=== PATIENT | female | born 1975 | race Caucasian/White ===

== ENCOUNTER 2016-07-24 10:11 | Outpatient (CLI) | payer BC, OTHER ==
[~2016-07-24] VITALS: Ht 175.3 cm; Wt 73.2 kg
[~2016-07-24 10:11] MED LIST: METO50TA16 PO
[2016-07-24 10:16] VITALS: BP 181/106; PULSE 76; RESP 18; Ht 175.3 cm; Wt 73.2 kg
--- NOTE | 2016-07-24 11:15 | PN ---
Date/Time of Note Date/Time of Note DATE: 07/24/16 TIME: 11:07 Assessment/Plan Assessment/Plan Assessment/Plan [facility] Outpatient Progress Note Date of Service: 07/24/2016 Today's Assessment & Plan: Overall stable and doing well. Reviewed benign EUS findings and recommendation of tumor board to follow symptomatically. I did my best to reassure her and answered all her questions. Patient would be more comfortable if we repeated her pancreas-protocol MRI in the summer, and we will plan on doing so for follow up. With above assessment, I've recommended the following for today: 1. Pancreas-protocol MRI in Oct or Nov 2016 2. Concentrate on healthy living with consistent exercise and healthy eating choices and habits 3. Address hypertension (systolics of around 180's in my office); asked patient to please follow up with PCP Thank you again for your great care of this very pleasant young lady and her wonderful family. If there are any questions, please feel free to call me at . Disclaimer: Inadvertent spelling and grammatical errors are likely due to EHR/ dictation software use and do not reflect on the quality of delivered patient care. Also, please note that the electronic time recorded on this node does not necessarily reflect the actual time of the visit. Updated Clinical Summary: A very pleasant, otherwise healthy 40-year-old young lady who was incidentally discovered to have a cystic lesion in the tail of the pancreas after abdominal and pelvic CT dated 11/14/2015 done for lower abdominal pain showed a lobulated , cystic appearing pancreas body mass measuring 4.1 cm in anterior-posterior dimension and 2.9 cm in transverse dimension. MRI of the abdomen and pelvis with and without contrast on 11/17/2015 showed again a complex lobulated, primarily cystic lesion 3.8 x 2.6 cm within the tail of the pancreas manifesting thin post-gadolinium enhancing, upper pole septations and no associated ductal dilatation or peripancreatic inflammation of the pancreas. Differential of mucinous cystic neoplasm, microcystic adenoma or pancreatic adenocarcinoma was entertained. The patient underwent an endoscopic ultrasound evaluation of this area by Dr. Hall on 05/13/16, who confirmed these findings. Finished treatment for H-pylori and negative on retest June 2016. Comorbidities: 1. BMI 23.8 (previously 10 Dec 2015) 2. Hypertension (Metoprolol ER 50 mg) 3. D & C, 02/2014 4. Allergy to Cipro (swollen eyes) 5. Family history of cervical cancer (grandmother) and diabetes and high blood pressure Subjective: No major events or complaints; no abd pain; no n/v/d; no sob or cp; + flatus; + BM and normal; + activity Objective: Vitals: See below Exam: GENERAL: On exam, the patient was sitting up in a chair and appeared to be comfortable and in no acute distress. ABDOMEN: Soft, nontender and nondistended. There are no peritoneal signs or guarding. SKIN: Skin appears to be pink and feels warm to touch. NEUROLOGIC: Patient is awake, alert, and follows commands appropriately. Exam/Review of Systems Vital Signs Vitals Vital Signs Date Time Temp Pulse Resp B/P Pulse Ox O2 Delivery O2 Flow Rate FiO2 07/24/16 10:16 98.0 76 18 181/106 100 Room Air ROSA JENKINS M.D. July 24, 2016 11:15
== END 2016-07-24 16:24 | disposition home or self-care (01) ==
LOC: HPC 10:11
PROVIDERS: ATTEND Transplant Surgery
DX: K86.9 Disease of pancreas, unspecified (principal); I10 Essential (primary) hypertension; Z88.1 Allergy status to other antibiotic agents; Z80.49 Family history of malignant neoplasm of other genital organs; Z83.3 Family history of diabetes mellitus
CPT/HCPCS: G0463